=== PATIENT | male | born 1995 | race Caucasian/White ===

== ENCOUNTER 2021-03-24 08:00 | Outpatient (CLI) | payer OTHER | END 2021-03-24 23:59 | disposition home or self-care (01) | LOC: LAB.N 08:00 | PROVIDERS: ATTEND Physician Assistant Medical | DX: R09.81 Nasal congestion (principal); Z20.822 Contact with and (suspected) exposure to COVID-19 ==

== ENCOUNTER 2021-10-29 06:44 | Emergency (ER) | payer OTHER ==
--- NOTE | 2021-10-29 07:41 | ED Physician Documentation ---
PD HPI HEENT - Stated complaint Stated Complaint: VOMITTING BLOOD - Chief complaint Chief Complaint: Heent - Additional information Additional information: Patient is a 36-year-old male presenting to the emergency department with complaint of blood-tinged sputum. He reports a longstanding history of sputum and sore throat with cough that happens every morning. States that this has followed him through multiple states and has been refractory to Flonase, oral antihistamines or other interventions. 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 He is a non-smoker. 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 Currently denies for any fever, chills, chest pain, shortness of breath, abdominal pain, nausea, vomiting, diarrhea, constipation. Review of Systems Constitutional: denies: Fever Eyes: denies: Loss of vision Ears: denies: Loss of hearing Nose: reports: Rhinorrhea / runny nose, Congestion Throat: denies: Dental pain / toothache Cardiac: denies: Chest pain / pressure Respiratory: denies: Dyspnea GI: denies: Abdominal Pain : denies: Dysuria Skin: denies: Rash Musculoskeletal: denies: Neck pain Neurologic: denies: Generalized weakness Psychiatric: denies: Depressed PD PAST MEDICAL HISTORY - Past Medical History Past Medical History: No Cardiovascular: None Respiratory: None Neuro: None Endocrine/Autoimmune: None GI: None : None HEENT: None Psych: None Musculoskeletal: None Derm: None - Past Surgical History Past Surgical History: No - Present Medications Home Medications: Ambulatory Orders Medication Instructions Recorded Confirmed No Known Home Medications 10/29/21 10/29/21 - Allergies Allergies/Adverse Reactions: Allergies Allergy/AdvReac Type Severity Reaction Status Date / Time Penicillins AdvReac Unknown Verified 10/29/21 06:57 - Social History Does the pt smoke?: No Smoking Status: Never smoker Does the pt drink ETOH?: No Does the pt have substance abuse?: No - Immunizations Immunizations are current?: Yes - POLST Patient has POLST: No PD ED PE NORMAL - Vitals Vital signs reviewed: Yes - General General: Alert and oriented X 3 - HEENT HEENT: Atraumatic, PERRL, Other (The left nare appears boggy and erythematous. No active bleeding. No identifiable nasal polyp.) - Neck Neck: Supple, no meningeal sign - Cardiac Cardiac: RRR, No gallop - Respiratory Respiratory: No respiratory distress, Clear bilaterally - Abdomen Abdomen: Normal bowel sounds, Non tender - Male Male : Deferred - Rectal Rectal: Deferred - Derm Derm: Normal color - Extremities Extremities: No deformity, No edema - Neuro Neuro: Alert and oriented X 3, No motor deficit, No sensory deficit Results - Vitals Vitals: Vital Signs - 24 hr 10/29/21 06:53 Temperature 35.7 C L Heart Rate 86 Respiratory 16 Rate Blood Pressure 153/102 H O2 Saturation 100 Oxygen O2 Source Room air PD MEDICAL DECISION MAKING - ED course Complexity details: reviewed results, d/w patient ED course: Patient is a 36-year-old male presenting to the emergency department with report of blood in mucosal secretions that he had this morning. Reports a longstanding history of reporting manager congestion similar to this in the past. Presentation is consistent with chronic rhinosinusitis. No indications of fungal infection or identified nasal polyps however patient did have boggy erythematous nares, left greater than right. Has not been seen by ENT for these things in the past. Will refer patient for follow-up with both primary care and [facility].He was o ffered medications for symptomatic management including Flonase, oral and nasal decongestants however he declined these stating that he has tried them in the past. Departure - Departure Disposition: 01 Home, Self Care Clinical Impression: Chronic rhinosinusitis Comments: Thank you for allowing us to care for you today at [facility]. The chest x-ray taken today did not show any indications of bleeding or other significant abnormality. I do not believe that there is any life-threatening cause for your symptoms however I am concerned about your longstanding history of chronic sinus congestion. I would like you to follow-up with an ears nose and throat specialist. To that and please follow-up with: [facility], [place] ears nose [facility] throat [phone] I also recommend following up carefully with your primary care doctor. Please drink plenty fluids and plenty of rest. If anytime you develop any new or worsening symptoms please not hesitate to return.
--- NOTE | 2021-10-29 08:09 | XRAY Report ---
PROCEDURE: Chest 2 View X-Ray INDICATIONS: cough TECHNIQUE: 2 view(s) of the chest. COMPARISON: None. FINDINGS: Surgical changes and devices: None. Lungs and pleura: No pleural effusions or pneumothorax. Lungs are clear. Mediastinum: Mediastinal contours are normal. Heart size is normal. Bones and chest wall: No suspicious bony abnormalities. Soft tissues appear unremarkable. IMPRESSION: No acute pulmonary process. Reviewed by: Xi Segal MD on 10/29/2021 8:08 AM PDT Approved by: Xi Segal MD on 10/29/2021 8:08 AM PDT Station ID: [id number]
[2021-10-29 08:44] VITALS: BP 144/98
[2021-10-29 08:51] LABS: B. PARAPERTUSSIS- RESP PCR PAN NOT DETECTED; B. PERTUSSIS- RESP PCR PANEL NOT DETECTED; C. PNEUMONIAE- RESP PCR PANEL NOT DETECTED; CORONAVIRUS 229E-RESP PCR NOT DETECTED; CORONAVIRUS HKU1-RESP PCR NOT DETECTED; CORONAVIRUS NL63-RESP PCR NOT DETECTED; CORONAVIRUS OC43-RESP PCR NOT DETECTED; HUMAN METAPNEUMOVIRUS NOT DETECTED; INFLUENZA A- RESP PCR PANEL NOT DETECTED; INFLUENZA B - RESP PCR PANEL NOT DETECTED; M. PNEUMONIAE- RESP PCR PANEL NOT DETECTED; PARAINFLUENZA VIRUS 1 NOT DETECTED; PARAINFLUENZA VIRUS 2 NOT DETECTED; PARAINFLUENZA VIRUS 3 NOT DETECTED; PARAINFLUENZA VIRUS 4 NOT DETECTED; RHINOVIRUS/ENTEROVIRUS NOT DETECTED; RSV- RESP PCR PANEL NOT DETECTED; SARS-CoV-2 -RESP PCR PANEL NOT DETECTED
== END 2021-10-29 08:55 | disposition home or self-care (01) ==
LOC: ED 06:44
DX: J31.0 Chronic rhinitis (principal)
CPT/HCPCS: 36415; 80053; 85025; 87633; 99282; 99284

== ENCOUNTER 2022-05-29 09:04 | Outpatient (CLI) | payer OTHER ==
[2022-05-29 09:50] VITALS: BP 126/84
--- NOTE | 2022-05-29 09:50 | SLEEP CARE CONSULTATION ---
Information from patient questionnaire entered by Arianna Crabtree MA. I have reviewed and concur with the information entered by Arianna Crabtree MA. This document represents the service I personally performed and the decisions made by , Davina Bermeo ARNP. History of Present Illness Service Date and Time: 05/29/2022 0904 Reason for Visit: New patient Chief Complaint: reports: Snoring, Observed pauses in breathing, Frequent awakenings at night Date of Onset: 3-5 YEARS Usual bedtime: 2100 Time it takes to fall asleep: 45 MIN - 1HR Snores at night: Yes Observed to quit breathing while asleep: Yes Sleeps alone due to snoring: No Number of times waking at night: 2 - 3 Reasons for waking at night: reports: Snoring, Gasping for air. denies: Choking Toss, Turn, or Twitch while sleeping: Yes Recalls having dreams: Yes Usually gets out of bed at: 0600 Feels refreshed in the morning: No Morning headache: No Sleepy or fatigued during the day: Yes Ever fallen asleep while driving: No Takes day naps: No Dreams during day naps: No Prior sleep studies: No Additional HPI information: I had the pleasure of seeing REJI AVITIA today regarding the possibility of him having a sleep disorder. His current complaints are snoring, observed pauses in breathing and frequent night awakenings. He states his tells him that he snores "badly" and will stop breathing at night. He states he wakes up frequently for no apparent reason. He does not feel rested in the mornings and will be tired throughout the day. He states his son has the same symptoms and they are trying to get him in to a sleep provider for evaluation. 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 Patient is and lives in [place]. Have you smoked in the past 12 months: Yes (QUIT JUL 2020) Cigarettes per day (20/pack): 20 Years of smokin Quit date: 07/08/2020 Smoking Pack Years: 15.0 Alcohol use: Yes Alcohol amount and frequency: 1 - 2 DRINKS QPM Caffeine use: No Family History Family history of sleep disordered breathing: Yes Family Hx Sleep Apnea: Other: Snoring (son has same symptoms), Sleep apnea - Untreated Allergies and Home Medications Known drug allergies: Yes Drug allergies reviewed: Yes (Penicillin) Home medication list reviewed: Yes (no daily medications) Review of Systems Weight gain over past 5 years: 5 Cardiovascular: reports: irregular heart rate or pulse. denies: high blood pressure Gastrointestinal: reports: heartburn Neurological: denies: headaches Psychiatric: denies: anxiety, depression Ear/Nose/Throat: reports: wisdom teeth removed. denies: tonsillectomy Endocrine: denies: thyroid disease Physical Exam Vital signs obtained and entered by: ARI GUTIÉRREZ Blood Pressure: 126/84 Cuff size: regular Heart Rate: 77 O2 Saturation: 99 Height: 5 ft 8.5 in Weight: 160 lb 6 oz Body Mass Index: 24.0 BMI Classification: Normal Neck circumference: 14.5 (inches) Mouth and throat: narrow oropharynx Soft palate: long Hard palate: normal Uvula: edematous Uvula visualization: 25% Mallampati Class III Tongue: normal in size Tonsils: small Neck: normal w/o lymphadenopathy or thyromegaly Heart: regular rate and rhythm Lungs: clear bilaterally Impression and Plan 1. Suspected Obstructive Sleep Apnea-Hypopnea Syndrome, as suggested by a history of loud and irregular snoring, observed cessation of breath while asleep, gasping or choking in sleep, frequent awakening during the night, unrefreshed sleep, and excessive daytime sleepiness. Narrow oropharynx and obesity are common predisposing factors for obstructive sleep apnea-hypopnea syndrome. I recommend proceeding to polysomnography to confirm the diagnosis and to assess severity. If the patient has significant sleep disordered breathing, a manual CPAP titration study will also be performed to find the optimal treatment pressure. I informed the patient of what the sleep studies involve and after some discussion, obtained agreement to proceed. The pathophysiology of obstructive sleep apnea-hypopnea syndrome was discussed with the patient and health risks of cardiovascular and cerebrovascular disease if not treated. Risks of drowsy driving discussed in detail and patient advised to avoid long distance driving and to pan puller at the first sign of drowsiness. Patient agreed to plan. * Schedule polysomnography * Avoid long distance driving or driving when feeling sleepy. * Avoid alcohol, sedative and muscle relaxant around bedtime. * Review instructions provided by trained office staff on how to prepare for the sleep study. * Return for follow-up after sleep study completed. Visit Type: In Office Time Spent with Patient (minutes): 30 Provider Statement: I spent 100% of the Face to Face Visit with the patient with greater than 50% spent counseling the patient and coordination of care.
== END 2022-05-29 09:05 | disposition home or self-care (01) ==
LOC: SC 09:04
PROVIDERS: ATTEND Nurse Practitioner Family
DX: R06.83 Snoring (principal); G47.8 Other sleep disorders; R06.81 Apnea, not elsewhere classified; G47.10 Hypersomnia, unspecified; I49.9 Cardiac arrhythmia, unspecified; Z87.891 Personal history of nicotine dependence
CPT/HCPCS: 99203; 99212

== ENCOUNTER 2022-07-07 10:11 | Outpatient (CLI) | payer OTHER ==
[2022-07-07 11:17] VITALS: BP 126/68
--- NOTE | 2022-07-07 11:17 | SLEEP CARE CONSULTATION ---
Information from patient questionnaire entered by Tamia Crum. I have reviewed and concur with the information entered by Tamia Crum. This document represents the service I personally performed and the decisions made by , Davina Bermeo ARNP. History of Present Illness Service Date and Time: 07/07/2022 1011 Initial [place] Sleepiness Scale score: 3 (05/29/2022) Current [place] Sleepiness Scale score: 3 (07/07/22) Additional HPI information: REJI AVITIA returns for follow up and results of the recently performed polysomnography. I explained the pathophysiology behind obstructive sleep apnea. We then spent quite a bit of time discussing different treatment options. For mild obstructive sleep apnea, surgery and oral appliance are alternatives to nasal CPAP therapy but in moderate or severe cases, nasal CPAP is the most effective and reliable treatment. Because apnea is primarily in supine position, then positional management therapy could be effective. Methods discussed such as positioning with pillows to prevent supine sleep. I reviewed the impact of weight changes on sleep apnea and strongly recommended losing weight. After some discussion, the patient opted to go with the nasal CPAP therapy. Nasal autoCPAP set at 4-15 cmH20 will be ordered with rationale explained. A manual titration study will be ordered if unable to find optimal pressure with office adjustments. I explained how CPAP machine works and what to expect when using the machine. Using CPAP every night in order to get used to it was emphasized. Patient advised to put CPAP mask on before getting into bed so as not to fall asleep w ithout CPAP. To assist acclimation to CPAP use, it could also be used for a short time during day while reading or watching TV. The patient was instructed to call the CPAP supplier to discuss any mechanical problem that may occur. If the mask given is uncomfortable or is difficult to keep on through the night even with adjustment, contact the CPAP supplier as many will replace with another mask style if notified before 30 days. If snoring or perceives is not getting enough air or too much air from the machine, notify this office. Patient counseled not drink alcohol less than 4 hours before bedtime as it can increase snoring and apnea. Patient was cautioned about risks of drowsy driving until sleepiness symptoms resolve. Patient denies drowsy driving. Sleep Study - Results Type of Sleep Study: Polysomnography (COMPLETED 06/23/22) Prior sleep studies: No Polysomnography/Home Sleep Study results: IMPRESSION: The quality of the study is good. The patient had reduced sleep efficiency due to frequent awakenings throughout the night. The sleep architecture was abnormal for sleep fragmentation and reduced amount of time spent in slow wave sleep (N3). Respiratory monitoring showed mild obstructive sleep apnea-hypopnea (AHI = 5.2) associated with frequent arousals, oxyhemoglobin desaturation but no significant hypoxia (caren oxygen saturation of 92%). The respiratory events occurred almost exclusively during supine sleep (supine AHI = 11.7; non-supine = 4.09). Snore was light to moderate in intensity. There was no significant periodic leg movement of sleep. Cardiac rhythm was normal sinus rhythm without significant arrhythmia. No abnormal behavior (parasomnia) observed during the night. Allergies and Home Medications Drug allergies reviewed: Yes (pencillins) Home medication list reviewed: Yes (no changes) Review of Systems Review of systems same as previous: Yes (no changes) Physical Exam Vital signs obtained and entered by: TAMIA Sherman MA Blood Pressure: 126/68 (LEFT ARM) Cuff size: regular Heart Rate: 80 O2 Saturation: 99 Height: 5 ft 8.5 in Weight: 169 lb 6.4 oz Body Mass Index: 25.4 BMI Classification: Overweight Impression and Plan 1. Obstructive Sleep Apnea-Hypopnea Syndrome, mild, with lowest oxygen saturation of 92%. Obviously this is the cause of the patients symptoms of unrefreshed sleep, and excessive daytime sleepiness. Positive pressure therapy could benefit arrhythmia and gastric reflux. As mentioned above, the patient will be started on nasal autoCPAP therapy with pressure set at 4-15 cmH2O. A manual titration study will be completed if unable to find optimal treatment pressure with office adjustments. Compliance guidelines also reviewed. A copy of compliance guidelines will be given for reference at check out. Because the ap cliff is more severe supine, I instructed to avoid sleeping supine using pillow positioning until able to start CPAP use. * Nasal auto CPAP therapy, pressure at 4-15 cm H2O. * Attempt to lose weight. * Avoid alcohol consumption near bedtime. * Avoid supine sleep until using CPAP. * The patient is again cautioned about driving until sleepiness completely resolves. * Return one month after CPAP obtained. I will assess response to therapy and compliance at that time. Counseling Topics: Sleeping position, Weight loss health impact Visit Type: In Office Time Spent with Patient (minutes): 20 Provider Statement: I spent 100% of the Face to Face Visit with the patient with greater than 50% spent counseling the patient and coordination of care.
== END 2022-07-07 10:12 | disposition home or self-care (01) ==
LOC: SC 10:11
PROVIDERS: ATTEND Nurse Practitioner Family
DX: G47.33 Obstructive sleep apnea (adult) (pediatric) (principal); E66.3 Overweight; Z68.25 Body mass index [BMI] 25.0-25.9, adult
CPT/HCPCS: 99212; 99213

== ENCOUNTER 2022-08-26 14:47 | Outpatient (CLI) | payer OTHER ==
--- NOTE | 2022-08-26 15:48 | SLEEP CARE CONSULTATION ---
Information from patient questionnaire entered by Pieter Crum. I have reviewed and concur with the information entered by Pieter Crum. This document represents the service I personally performed and the decisions made by , Davina Bermeo ARNP. History of Present Illness Service Date and Time: 08/26/2022 1447 Previous diagnosis: Mild, Obstructive Sleep Apnea-Hypopnea Syndrome AHI: 5.2 (in 06/2022) Reason for follow up: first compliance Equipment type: CPAP (RESMED Airsense 11 s/u 07/2022) Equipment obtained from: [employer] ([employer] supplies) Mask style: Full face Mask brand: Resmed (F20) Backup mask available: No (will keep old mask when replaced) Last cushion change: 2 weeks Prior sleep studies: No Type of Sleep Study: Polysomnography (COMPLETED 06/23/22) HPI additional information: REJI AVITIA was diagnosed to have mild, AHI 5.2, obstructive sleep apnea- hypopnea syndrome and returned today for CPAP therapy first compliance follow- up. Sleep Study - Results Type of Sleep Study: Polysomnography (COMPLETED 06/23/22) Prior sleep studies: No CPAP Compliance Data - Data Reviewed with Patient Average duration of nightly device use: 1 hour 18 minutes Compliance rate %: 5 (11/26 days used) Current pressure setting (cmH2O): 4-15 (median 6.5, avg 9.3, max 9.7 Average residual AHI: 8.9 Central apnea: 5.0 Obstructive apnea: 3.3 Subjective Missed days of use due to: reports: mask issues Patient concerns: reports: mask discomfort, mask leak noise, dry mouth, nose, throat. denies: air blowing in eyes, condensation in mask/hose, nasal congestion, epistaxis Observed to snore while using device: No Current pressure setting perceived as: too low On therapy, patient: reports: other (no changes yet, not able to wear long enough) Initial [place] Sleepiness Scale score: 3 (05/29/2022) Current [place] Sleepiness Scale score: 2 (08/26/22) Allergies and Home Medications Known drug allergies: Yes (penicillins) Drug allergies reviewed: Yes Home medication list reviewed: Yes (no changes) Review of Systems Review of systems same as previous: Yes (no changes) Physical Exam Vital signs obtained and entered by: PIETER Sherman MA Blood Pressure: 126/76 (LEFT ARM) Cuff size: regular Heart Rate: 88 O2 Saturation: 98 Height: 5 ft 8.5 in Weight: 166 lb 3.2 oz Body Mass Index: 24.9 BMI Classification: Normal Impression and Plan 1. Obstructive Sleep Apnea-Hypopnea Syndrome, mild, with poor treatment compliance and fair apnea control with elevated residual AHI. Patient feels that the pressure is too low. The patients pressure will be changed to autoCPAP 7-15 cmH20 for elevated AHI. I will also increase ramp starting pressure to 6 cmH2O to try and reduce air hunger. He can not tolerate the F20 mask, it makes him fe el claustrophobic. I showed him a few nasal masks and he would like to try the Resmed Airfit P10 mask. I will write for a mask fitting. Patient advised to contact me if pressure change is uncomfortable so that it can be adjusted. Goals for apnea control discussed. Patient's apnea severity and rationale for treatment to reduce apnea, improve sleep quality and reduce cardiovascular and cerebrovascular events was reviewed. I also reviewed the benefit of consistent device use of CPAP for hypertension, arrhythmia, gastric reflux and depression. * Change auto CPAP pressure to 7-15 cmH2O * Increase ramp starting pressure to 6 cmH2O * Mask fitting for a nasal pillows mask, Resmed Airfit P10. * Notify me if snoring with mask or feeling that the pressure is too much or too little * Attempt to lose weight * Call this office if any problems using CPAP * Return for follow up in 1-2 months, or sooner if concerns arise Counseling Topics: Spare mask, Weight loss health impact Visit Type: In Office Time Spent with Patient (minutes): 22 Provider Statement: I spent 100% of the Face to Face Visit with the patient with greater than 50% spent counseling the patient and coordination of care.
[2022-08-26 15:50] VITALS: BP 126/76
== END 2022-08-26 14:48 | disposition home or self-care (01) ==
LOC: SC 14:47
PROVIDERS: ATTEND Nurse Practitioner Family
DX: G47.33 Obstructive sleep apnea (adult) (pediatric) (principal)
CPT/HCPCS: 99212; 99213

== ENCOUNTER 2023-04-25 09:03 | Emergency (ER) | payer OTHER ==
--- NOTE | 2023-04-25 09:29 | ED Physician Documentation ---
History of Present Illness - Stated complaint Stated Complaint: LOWER BACK PX - Chief complaint Chief Complaint: Back Pain - History obtained from History obtained from: Patient - Additonal information Additional information: 37-year-old gentleman with history of conservatively managed renal colic x1 about 5 years ago presents with right flank pain starting yesterday. Worse with movement. No injury. No urinary complaints or hematuria. Denies weakness, numbness, tingling, saddle anesthesia, incontinence in the legs. Declines pain medication on initial evaluation. PD PAST MEDICAL HISTORY - Past Medical History Past Medical History: Yes Cardiovascular: Atrial fibrillation Respiratory: None Neuro: None Endocrine/Autoimmune: None GI: None : Kidney stones HEENT: None Psych: None Musculoskeletal: None Derm: None - Past Surgical History Past Surgical History: Yes Cardiovascular: Other - Present Medications Home Medications: Ambulatory Orders Medication Instructions Recorded Confirmed Cyclobenzaprine [Flexeril] 10 mg PO TID PRN #20 tablet 04/25/23 Ibuprofen [Motrin] 600 mg PO Q6H PRN #30 tab 04/25/23 - Allergies Allergies/Adverse Reactions: Allergies Allergy/AdvReac Type Severity Reaction Status Date / Time Penicillins AdvReac Unknown Verified 04/25/23 09:21 - Social History Does the pt smoke?: No Smoking Status: Never smoker Does the pt drink ETOH?: No Does the pt have substance abuse?: No - Immunizations Immunizations are current?: Yes - POLST Patient has POLST: No PD ED PE NORMAL - Vitals Vital signs reviewed: Yes - General General: Alert and oriented X 3, Other (Comfortable at rest and winces with motion) - Abdomen Abdomen: Normal bowel sounds, Soft, Non tender - Back Back: No CVA TTP, No spinal TTP - Neuro Neuro: Alert and oriented X 3, Normal speech Results - Vitals Vitals: Vital Signs - 24 hr 04/25/23 09:17 Temperature 36.2 C L Heart Rate 78 Respiratory 20 Rate Blood Pressure 150/138 H O2 Saturation 99 Oxygen O2 Source Room air - Labs Labs: Laboratory Tests 04/25/23 04/25/23 04/25/23 09:30 09:30 10:10 WBC 5.1 RBC 5.20 Hgb 16.8 Hct 47.7 MCV 91.7 MCH 32.3 H MCHC 35.2 RDW 11.8 L Plt Count 188 MPV 8.5 Neut # (Auto) 3.1 Lymph # (Auto) 1.6 [place] # (Auto) 0.3 Eos # (Auto) 0.1 Baso # (Auto) 0.1 Absolute Nucleated RBC 0.00 Nucleated RBC % 0.0 Sodium 137 Potassium 4.2 Chloride 102 Carbon Dioxide 30 Anion Gap 5.0 L BUN 13 Creatinine 1.0 Estimated GFR (MDRD) 85 L Glucose 99 Calcium 9.5 Urine Color YELLOW Urine Clarity CLEAR Urine pH 6.0 Ur Specific [place] 1.025 Urine Protein NEGATIVE Urine Glucose (UA) NEGATIVE Urine Ketones NEGATIVE Urine Occult Blood NEGATIVE Urine Nitrite NEGATIVE Urine Bilirubin NEGATIVE Urine Urobilinogen 1 (NORMAL) Ur Leukocyte Esterase NEGATIVE Ur Microscopic Review NOT INDICATED Urine Culture Comments NOT INDICATED - Rads (name of study) CT KUB is negative Relevant Findings:: Final report received, EMP independent interpretation of test PD Medical Decision Making - ED course ED course: He presents with right back pain and concern for kidney stone. He has had 1 before. That said he is comfortable at rest and winces more with motion which would be suggestive of musculoskeletal etiology as opposed to renal colic. CT done without findings of stone etc. and CBC, CMP, UA grossly normal. Departure - Departure Disposition: Home, Self Care Clinical Impression: Back pain Condition: Good Record reviewed to determine appropriate education?: Yes Instructions: ED Spasm Back No Trauma Prescriptions: Cyclobenzaprine [Flexeril] 10 mg PO TID PRN #20 tablet PRN Reason: Spasms Ibuprofen [Motrin] 600 mg PO Q6H PRN #30 tab PRN Reason: Pain Comments: As discussed, the CAT scan and labs are normal. The CT especially rules out kidney stone. So this is seeming more like muscular low back pain. Call your doctor to arrange a follow-up appointment, make the next available appointment. In the interim, return anytime if worse or if new symptoms develop.
[2023-04-25 09:34] LABS: BASOPHILS # (AUTO) 0.1 10^3/uL (0.0-0.1); EOSINOPHILS # (AUTO) 0.1 10^3/uL (0.0-0.7); HCT - HEMATOCRIT 47.7 % (42.0-52.0); HGB - HEMOGLOBIN 16.8 g/dL (14.0-18.0); LYMPHOCYTES # (AUTO) 1.6 10^3/uL (1.5-3.5); LYMPHOCYTES % (AUTO) 31.4 %; MEAN CORPUSCULAR HEMOGLOBIN 32.3 pg (27.0-31.0); MEAN CORPUSCULAR HGB CONC 35.2 g/dL (32.0-36.0); MEAN CORPUSCULAR VOLUME 91.7 fL (80.0-94.0); MEAN PLATELET VOLUME 8.5 fL (7.4-11.4); MONOCYTES # (AUTO) 0.3 10^3/uL (0.0-1.0); MONOCYTES % (AUTO) 5.7 %; NEUTROPHILS # (AUTO) 3.1 10^3/uL (1.5-6.6); NEUTROPHILS % (AUTO) 60.7 %; PLT - PLATELET COUNT 188 10^3/uL (130-450); RED CELL DISTRIBUTION WIDTH 11.8 % (12.0-15.0); WHITE BLOOD COUNT 5.1 x10^3/uL (4.8-10.8)
[2023-04-25 09:51] LABS: CALCIUM 9.5 mg/dL (8.5-10.3); POTASSIUM 4.2 mmol/L (3.5-4.5)
[2023-04-25 10:14] LABS: BILIRUBIN,URINE NEGATIVE (NEGATIVE); GLUCOSE, URINE (UA) NEGATIVE (NEGATIVE); KETONES,URINE (UA) NEGATIVE (NEGATIVE); LEUKOCYTE ESTERASE, URINE NEGATIVE (NEGATIVE); NITRITE,URINE NEGATIVE (NEGATIVE); OCCULT BLOOD,URINE NEGATIVE (NEGATIVE); PROTEIN,URINE NEGATIVE (NEGATIVE); UROBILINOGEN,URINE 1 (NORMAL) E.U./dL (NORMAL)
[2023-04-25 10:16] LABS: CLARITY,URINE CLEAR (CLEAR)
--- NOTE | 2023-04-25 10:57 | CT Report ---
PROCEDURE: ABDOMEN/PELVIS WO INDICATIONS: Right flank pain TECHNIQUE: A CT scan of the abdomen and pelvis was performed without the use of intravenous contrast. Images we re recorded and evaluated at appropriate window settings. Reformats: coronal and sagittal. For radiat ion dose reduction, the following was used: automated exposure control, adjustment of mA and/or kV ac cording to patient size. COMPARISON: None. FINDINGS: Image quality: Excellent. Lung bases and heart: Unremarkable. Liver: No solid mass. Gallbladder and biliary tree: No radiopaque stones or wall thickening. No biliary dilation. Spleen: No splenomegaly. Pancreas: No pancreatic ductal dilation. Adrenals: No adrenal nodule. Kidneys and ureters: No hydronephrosis. No renal cystic lesion which requires follow up. No solid mas s. Bowel and peritoneum: No bowel distension. No pathologic free fluid. Lymph nodes: No central or retroperitoneal adenopathy. Vessels: No infrarenal aortic aneurysm. PELVIS Reproductive organs: Unremarkable. Bladder: No wall thickness, accounting for underdistention. Pelvic lymph nodes: No pelvic adenopathy by size criteria. Bones: No aggressive osseous abnormality. Other: No significant ventral or inguinal hernia. IMPRESSION: No hydronephrosis or obstructing renal stone. No acute finding within the abdomen or pelvis to explain patient's symptoms. Reviewed by: Tra Lopez MD on 04/25/2023 9:55 AM [facility] Approved by: Tra Lopez MD on 04/25/2023 9:55 AM [facility] Station ID: [id number]
[2023-04-25 11:17] VITALS: BP 138/106; O2SAT 100
== END 2023-04-25 11:16 | disposition home or self-care (01) ==
LOC: ED 09:03
DX: M54.50 Low back pain, unspecified (principal); I48.91 Unspecified atrial fibrillation
CPT/HCPCS: 36415; 80048; 81001; 81003; 85025; 87086; 99284